=== PATIENT | male | born 1955 | race Caucasian/White ===

== ENCOUNTER 2023-10-13 08:02 | Day surgery (SDC) | payer OTHER, BC ==
[2023-10-10 13:39] LABS: Absolute Lymphocytes (CBC) 1.7 K/uL (0.7-4.9); Hematocrit 43.5 % (39.6-49.0); Lymphocytes % 26.9 % (15.3-44.8); MPV 8.3 fL (7.6-11.3); Platelets 190 thou/uL (152-406); RBC Red Blood Cell Count 4.53 M/uL (4.33-5.43)
[2023-10-10 13:50] LABS: Protime INR 1.12
[2023-10-10 13:53] LABS: Potassium 4.5 mEq/L (3.5-5.1)
--- NOTE | 2023-10-10 13:58 | RAD REPORT ---
EXAM DESCRIPTION: [place] Single View10/10/2023 1:31 pm CLINICAL HISTORY: PREOP. Hypertension COMPARISON: Abdomen Pelvis W/Wo Contrast dated 10/07/2023 TECHNIQUE: PA view of the chest. FINDINGS: The lungs are clear. Small rounded radiodense lesion just above the left hemidiaphragm, f avoring a small calcified granuloma. No pneumothorax or effusion. The cardiomediastinal contours are unremarkable. Tortuosity of the distal aorta. IMPRESSION: No acute cardiopulmonary process.
[2023-10-13] MEDS ORDERED: Ringers Lactate 1,000 ML IV ONE (08:40)
[2023-10-13] MEDS ORDERED: Gentamicin Inj 240 MG in NA CHLORIDE 0.9% 100 ML IV ONE (09:00)
[2023-10-13] MEDS ORDERED: FENTANYL CITR 100 MCG/2 ML ONE (09:02)
[2023-10-13] MEDS ORDERED: ONDANSETRON 4 MG/2 ML VIAL ONE (09:02)
[2023-10-13] MEDS ORDERED: LIDOCAINE 1% MPF 5 ML VIAL ONE (09:02)
[2023-10-13] MEDS ORDERED: propofoL 200 MG/20 ML VIAL IV ONE (09:02)
[2023-10-13] MEDS ORDERED: CLINDAMYCIN 600MG/D5W 50 ML IV ONE (09:06)
[2023-10-13] MEDS ORDERED: MIDAZOLAM HCL 2 MG/2 ML INJ ONE (09:14)
[2023-10-13] MEDS ORDERED: ROCURONIUM 50 MG/5 ML VIAL IV ONE (09:14)
[2023-10-13] MEDS ORDERED: dexAMETHasone 10 MG/ML VIAL ONE (09:29)
[2023-10-13] MEDS ORDERED: KETOROLAC 30 MG/ML INJ ONE (09:29)
[2023-10-13] MEDS ORDERED: GLYCOPYRROLATE 0.2 MG/ML SYR ONE (10:01)
--- NOTE | 2023-10-13 10:01 | RAD REPORT ---
EXAM DESCRIPTION: RAD - Urethrocystogrphy Retrograde - 10/13/2023 9:53 am CLINICAL HISTORY: RETROGRADE PYELOGRAM W STENT PLCMNT COMPARISON: None available. FINDINGS: Twenty-one Images were sent to PACS, documenting hardware positions during retrograde pyel ography and stent placement. No radiologist was available for the procedure, nor will any image inter pretation he provided. Please refer to the procedural report for additional details. Fluoroscopy time: 0.5 Minutes. IMPRESSION: Documentation of fluoroscopy utilization as above.
[2023-10-13] MEDS ORDERED: NEOSTIGMINE 1 MG/ML -10 ML VIAL ONE (10:02)
[2023-10-13 11:20] VITALS: BP 135/94; TEMP 97.3; O2SAT 97
--- NOTE | 2023-10-13 19:26 | OP ---
Date of Procedure: 10/13/2023 Surgeon: LIBRADO GEORGES Preoperative Diagnoses: 1. Gross hematuria. 2. Left nephrolithiasis. 3. Left hydronephrosis. 4. Suspected left ureteropelvic junction obstruction due to crossing vessel. Postoperative Diagnoses: 1. Gross hematuria. 2. Left nephrolithiasis. 3. Left hydronephrosis. 4. Suspected left ureteropelvic junction obstruction due to crossing vessel. 5. Ureteral stricture/stenosis. Principal Procedures: 1. Cystoscopy. 2. Left retrograde pyelography. 3. Left semi-rigid ureteroscopy. 4. Left ureteral dilation. 5. Left 6 x 26-Ethiopian ureteral stent placement. Indication For Procedure: Mr. Hoyt presented to the Urology Clinic having had gross hematuria over the course of 2 months and a history of smoking remotely in the past. He underwent a preoperative CT urography, which revealed the presence of calculi at the presence of the left UPJ and marked left hydronephrosis. Because of the presence of the hydronephrosis and the stones, which would require surgical intervention as there was evidence of chronicity in the setting of suspected chronic kidney disease, he was counseled on the need for operative intervention. Procedure In Detail: The patient was consented in the preoperative holding area before being transferred to the operative suite, where general anesthesia was induced. He was given clindamycin and gentamicin 240 mg IV antimicrobial prophylaxis, and pneumo boots were provided for DVT prophylaxis. He was placed in the lithotomy position, padded and secured to the table appropriately. His genitalia were prepped with Hibiclens, and he was draped in a standard fashion. The case was begun using the 22-Ethiopian rigid cystoscope to traverse the urethra and into the bladder with relative ease. There was note of some BPH with a small intravesically projecting median lobe. The bladder was surveyed in its entirety, and no papillary mucosal lesions, foreign bodies, or stones were noted throughout. The ureteral orifices were orthotopic in location, and the left ureteral orifice was cannulated using the tip of a 5-Ethiopian ureteral access catheter. Left retrograde pyelography: Using a 70:30 mixture of Omnipaque and saline, contrast was injected via the lumen of the 5-Ethiopian ureteral access catheter and did propagate up the distal into the mid and proximal ureter before entering a markedly dilated renal pelvis. The contrast did not fill the pelvicaliceal structures initially, with a central area of luminal filling defect encompassing the mid pole and lower pole calices largely. That luminal deficiency also encompassed the renal pelvis. Along the entirety of the ureter, there were skip areas of stenosis in between areas of ureteral dilation at multiple points along the ureter. There was mild tortuosity of the ureter, and at the ureteropelvic junction, there was also some stenotic narrowing. As a result, I passed a Sensor wire via the lumen of the 5-Ethiopian ureteral access catheter and was able to navigate it successfully beyond the points of ureteral stenosis into the upper pole of the kidney as evidenced fluoroscopically. Of note, the contrast did seem to fill out the remainder of the renal pelvis and the calices without evidence of filling defect. After passing the Sensor wire successfully into the collecting system, I then passed a dual-lumen catheter over the Sensor wire, but there was a point of stenosis at the pelvic inlet. As a result, I passed a Bentson guidewire via the second lumen of the dual-lumen catheter after injecting contrast via that lumen to confirm the appropriate intraluminal location of the dual-lumen catheter. Once the Bentson guidewire was noted to be appropriately positioned alongside the Sensor wire in the upper pole of the kidney, I then removed the dual-lumen catheter and backloaded the semi-rigid ureteroscope over that Bentson guidewire and navigated it into the ureteral orifice and up to the point of obstruction at the pelvic inlet. While no stone was noted at that location, there was significant stenosis that was apparently due to some strictured narrowing. Despite gentle attempts to pressure beyond the point of obstruction, I was not able to pass with the ureteroscope; so I passed the Bentson guidewire under direct vision back via the ureteroscope and attempted to navigate it into the collecting system, but it coiled at the UPJ. I thus removed the semi-rigid ureteroscope, leaving the wire in place and passed an 8-Ethiopian catheter over the Bentson guidewire into the region of the UPJ as evidenced fluoroscopically. I then passed the 10-Ethiopian sheath over the 8-Ethiopian catheter, but it would only go into the distal portion of the ureter and perhaps not even past the point of obstruction previously encountered. I then removed the 8-Ethiopian catheter and injected contrast via the 10-Ethiopian and confirmed there was no evidence of ureteral injury. It also showed that there was no significant dilation. I thus attempted to pass the 8-Ethiopian back into the proximal ureter, but at this point, I noted aberrant deviation of the 8-Ethiopian catheter, which was suggestive of possible extramural progression/ureteral puncture near the left UPJ. As a result, I removed the 8-Ethiopian catheter as well as a 10-Ethiopian catheter, and I backloaded the cystoscope over the indwelling safety wire and passed a 6-Ethiopian by 26 cm double-J ureteral stent over the Sensor safety wire successfully coiling the stent in the upper pole calyx of the left kidney with an additional coil observed cystoscopically in the patient's bladder. I then decompressed the bladder of fluid and urine and a small amount of blood and clot, and took out the cystoscope. I then took the patient out of the lithotomy position, and he was awakened from general anesthesia. He was then transferred to a stretcher and then transferred to the recovery room in good condition. Complications: Left proximal ureteral/UPJ suspected puncture. Discharge Disposition: We will leave the ureteral stent for a period of several weeks to allow dilation of the multiple points of stenosis seen fluoroscopically and prohibiting ureteroscopic investigation today. This will also allow opportunity for healing of any possible perforation that may have occurred. We will then have him follow up in the Urology Clinic to discuss the plan for repeat ureteroscopic effort and intervention to manage not only his ureteral calculi, but also investigate the multiple areas of skip, ureteral stenosis, and their etiology. MARINO/NADINE Voice ID: [id number] Report ID: [id number] RAF
--- NOTE | 2023-10-15 17:39 | EKG ---
Test Date: 2023-10-10 Test Time: 14:13:57 [employer]: IRINA MEASUREMENT RESULTS: Intervals: Rate: 70 [place]: QRSD: 86 QT: 368 QTc: 397 [place]: P: KS: QRS: 53 T: -10 INTERPRETIVE STATEMENTS: Atrial fibrillation with premature ventricular or aberrantly conducted complexes Nonspecific T wave abnormality, probably digitalis effect Abnormal ECG No previous ECG available for comparison Electronically Signed On 10-15-23 17:26:57 [employer] by Mp Greene
== END 2023-10-13 11:15 | disposition home or self-care (01) ==
LOC: OR 08:02
PROVIDERS: ATTEND Urology
PROC: 0T778DZ Dilation of Left Ureter with Intraluminal Device, Via Natural or Artificial Opening Endoscopic (ICD-10-PCS; principal; 2023-10-13 09:15)
DX: N13.2 Hydronephrosis with renal and ureteral calculous obstruction (principal); N13.1 Hydronephrosis with ureteral stricture, not elsewhere classified; R31.0 Gross hematuria; I48.91 Unspecified atrial fibrillation; E78.00 Pure hypercholesterolemia, unspecified
CPT/HCPCS: 52344; 52332; 93005; 87088; 85025; 87086; 80048; 36415; 85610; 71045; 74450; 51610; J2704; J2710; J2001; J1580; J2250; J3010; J1100; J2405; J7120

== ENCOUNTER 2023-11-18 08:07 | Day surgery (SDC) | payer OTHER, BC ==
[2023-11-06 16:09] LABS: Absolute Lymphocytes (CBC) 1.5 K/uL (0.7-4.9); Hematocrit 42.6 % (39.6-49.0); Lymphocytes % 25.6 % (15.3-44.8); MPV 8.3 fL (7.6-11.3); Platelets 195 thou/uL (152-406); RBC Red Blood Cell Count 4.43 M/uL (4.33-5.43)
[2023-11-06 16:10] LABS: Protime INR 1.19
[2023-11-06 16:29] LABS: Potassium 4.4 mEq/L (3.5-5.1)
[2023-11-18] MEDS ORDERED: Ringers Lactate 1,000 ML IV ONE (08:12)
[2023-11-18] MEDS: CLINDAMYCIN 600MG/D5W 50 ML IV ONE ×2 (08:30→08:45)
[2023-11-18] MEDS ORDERED: propofoL 200 MG/20 ML VIAL IV ONE (08:57)
[2023-11-18] MEDS ORDERED: ONDANSETRON 4 MG/2 ML VIAL ONE (08:57)
[2023-11-18] MEDS ORDERED: FENTANYL CITR 100 MCG/2 ML ONE ×2 (08:58→09:09)
[2023-11-18] MEDS ORDERED: Gentamicin Inj 180 MG in NA CHLORIDE 0.9% 100 ML IVPB ONE (09:00)
[2023-11-18] MEDS ORDERED: EPHEDRINE SULF 50 MG/ML VIAL ONE (09:06)
[2023-11-18] MEDS ORDERED: PHENAZOPYRIDINE 100MG TAB PO ONE ×2 (10:15→10:52)
[2023-11-18] MEDS ORDERED: HYDROCODONE/APAP 5/325 MG TAB PO PRN (10:15)
[2023-11-18] MEDS ORDERED: HYDROCODONE/APAP 5/325 MG TAB ONE (10:57)
--- NOTE | 2023-11-18 11:01 | RAD REPORT ---
EXAM DESCRIPTION: RAD - Urethrocystogrphy Retrograde - 11/18/2023 10:00 am CLINICAL HISTORY: STENT EXCHANGE COMPARISON: Urethrocystogrphy Retrograde dated 10/13/2023 FINDINGS/IMPRESSION: Twenty-two intraoperative fluoroscopic images were submitted demonstrating doreen ulation of left ureter, retrograde pyelogram, and guidewire placement. Fluoro time: 30 seconds Dose: 16.0 mGy
[2023-11-18 11:56] VITALS: BP 153/89; TEMP 97.4; O2SAT 95
--- NOTE | 2023-11-18 12:11 | OP ---
Surgeon: LIBRADO GEORGES Preoperative Diagnoses: 1.Left nephrolithiasis. 2.Left ureteral filling defects. 3.Status post cystoscopy with left ureteral stent placement. Postoperative Diagnoses: 1.Left nephrolithiasis. 2.Left UPJ obstruction. 3.Left distal ureteral stricture disease. Principal Procedures: 1.Cystoscopy. 2.Left retrograde pyelography. 3.Left semi-rigid ureteroscopy. 4.Placement of a left ureteral access sheath. 5.Flexible left ureteroscopy with pyeloscopy and laser lithotripsy. 6.Left ureteral stent exchange. Findings: 1.Two calculi present within the mid pole posterior and the lower pole measuring approximately 9 mm and 7 mm. UPJ obstruction observed. 2.Distal ureteral stricture disease. Indication For Procedure: Mr. Hoyt presented to the Urology Clinic with gross hematuria and under went cystoscopic evaluation that was unremarkable. CT scan was performed revealing the presence of n ephrolithiasis with some hydronephrosis on the left side, but no distinct obstructing ureteral calcul us. He underwent attempted prior ureteroscopy, but was unable to complete it due to significant pote ntial stricture disease and filling defects were observed along the course of the ureter. As a resul t, he underwent stent placement and preparation for return to operative evaluation today. Procedure In Detail: The patient was consented in the preoperative holding area before being transfe rred to the operative suite where general anesthesia was induced. He was given clindamycin 600 mg an d gentamicin 180 mg IV antimicrobial prophylaxis because of his allergy to penicillin. Pneumo boots were provided for DVT prophylaxis. He was placed in the lithotomy position, padded and secured to th e table appropriately. His genitalia were prepped with Hibiclens and he was draped in standard fashi on. The case was begun using a 22-Chadian rigid cystoscope to traverse the urethra and into the bladd er with relative ease. The bladder was decompressed of fluid and urine and surveyed. The stent was noted emanating from the left ureteral orifice; so, given the prior potential for proximal ureteral t rauma, I utilized the tip of the Sensor wire to insert a 5-Chadian ureteral access catheter into the d istal ureter and performed a retrograde pyelogram. Left retrograde pyelography: Using a 70:30 mixture of Omnipaque and saline, I injected contrast esme gside the stent that remained indwelling via the 5-Chadian ureteral access catheter and observed the c ontrast emanate up along the stent and into the renal pelvis without any evidence of ureteral extrava sation. As a result, I advanced the Sensor wire via the 5-Chadian ureteral access catheter coiling it within the upper pole of the kidney. I then grasped the coil of the stent within the bladder and de livered the entirety of the stent via the meatus with ease. I then passed a dual-lumen catheter into the distal ureter and again injected contrast to confirm appropriate localization of the wire and wi thin the ureteral lumen. I then passed a Bentson guidewire via the second lumen of the dual-lumen ca theter and coiled it alongside the Sensor wire in the upper pole. I removed the dual-lumen catheter and then attempted to perform flexible ureteroscopy by passing the digital flexible ureteroscope over the Bentson guidewire, but unfortunately, it got hung up in the region of the distal ureter. To farhad luate what was causing this obstruction, I removed the flexible ureteroscope and utilized a semi-rigi d ureteroscope, traversed via the urethra into the bladder and into the ureteral orifice to survey th at. I did observe an area of ureteral narrowing due to stricture disease in that area that was only mildly obstructing. Clearly, it was obstructing enough to prevent passage of a ureteroscope that was around 12-Chadian in diameter. As a result, I backed out the semi-rigid ureteroscope after surveying proximal to that point of obstruction and into the proximal ureter where I again surveyed the obstru ction at the UPJ causing the left-sided hydronephrosis and observed what appeared to be a flap valve type ureteropelvic junction obstruction. As a result, I removed the semi-rigid ureteroscope and pass ed an 11 x 13-Chadian ureteral access sheath over the Bentson guidewire all the way into the renal pel vis. I used this to dilate the stricture disease and get past the point of obstruction, so I could p ass a flexible ureteroscope all the way into the renal pelvis and surveyed the calyces. I first iden tified within the lower pole calyx an approximately 9 mm calculus, which I used a 1.9-Chadian 0 tip Ni tinol basket to deliver out of the lower pole posterior location and into the upper pole. There, I u tilized a 270 nm laser fiber at a power setting of 0.6 joules and 25 hertz initially to fragment the stone. As the stone was somewhat hard, I increased the power to 0.8 joules in order to completely fr agment it into dust small enough to pass at around the size of the laser fiber. I then surveyed down into the upper mid pole calyces and then in the mid pole calyx posteriorly, I observed an additional calculus that was around 7 to 8 mm. I similarly used the laser fiber to fragment this having increa sed the power to 1.2 joules initially because of the hardness of the stone and eventually 1.4 joules before I was able to completely fragment the stone into dust. I utilized a basket to grab a signific ant quantity of the dust and any stone fragments out. I then tried to irrigate the remainder of the stone dust from within the collecting system, so it would not obstruct relative to the known UPJ obst ruction. I then backed the cystoscope out of the collecting system and removed the ureteral access s celso. I then passed the cystoscope over the indwelling safety wire back into the patient's bladder and passed a 6-Chadian x 26 cm double-J ureteral stent over the wire coiling it within the upper pole of the kidney with an additional coil cystoscopically formed within his bladder. I then decompressed his bladder of fluid and urine and a significant quantity of stone dust. He was then taken out of t he lithotomy position. He was then awakened from general anesthesia, transferred to a stretcher, and then transferred to the recovery room in good condition. Complications: None. Discharge Disposition: He will be scheduled to followup, where we will review the imaging performed, the CT urogram, to see if I see evidence of a crossing vessel underlying his UPJ obstruction. If no crossing vessel is observed, we will plan MAG 3 Lasix renography to assess for signs of functional o bstruction and also split renal function to determine if there may be benefit to repair of the UPJ ob struction. Subsequently, if he is a recurrent stone former, definitive metabolic profile assessment will also be required. So, we will bring him back for stent extraction within the next 2 to 4 weeks. This will need to be done cys toscopically. MARINO/NADINE Voice ID: [id number] Report ID: [id number]
== END 2023-11-18 11:23 | disposition home or self-care (01) ==
LOC: OR 08:07
PROVIDERS: ATTEND Urology
PROC: 0T778DZ Dilation of Left Ureter with Intraluminal Device, Via Natural or Artificial Opening Endoscopic (ICD-10-PCS; 2023-11-18)
PROC: 0TF78ZZ Fragmentation in Left Ureter, Via Natural or Artificial Opening Endoscopic (ICD-10-PCS; principal; 2023-11-18 10:30)
DX: N20.0 Calculus of kidney (principal); N13.1 Hydronephrosis with ureteral stricture, not elsewhere classified; N13.5 Crossing vessel and stricture of ureter without hydronephrosis; I48.91 Unspecified atrial fibrillation; E78.00 Pure hypercholesterolemia, unspecified; R31.0 Gross hematuria
CPT/HCPCS: 85025; 87086; 80048; 36415; 85610; 88300; 82360; 74450; 51610; 52356; J2704; J1580; J3010 ×2; J2405; J7120; 87088